=== PATIENT | male | born 2005 | race Caucasian/White ===

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

== ENCOUNTER 2023-12-18 08:00 | Outpatient (CLI) | payer BC | END 2023-12-18 23:59 | disposition home or self-care (01) | LOC: LAB.N 08:00 | PROVIDERS: ATTEND Nurse Practitioner | DX: R07.0 Pain in throat (principal) | CPT/HCPCS: 87070 ==

== ENCOUNTER 2023-12-29 08:48 | Outpatient (CLI) | payer BC ==
[2023-12-29] MEDS ORDERED: iohexoL-300 100 ML VIAL ONE ×2 (08:50→09:03)
[2023-12-29] MEDS: iohexoL-300 100 ML VIAL IVP ONE (15:34)
--- NOTE | 2023-12-29 21:59 | CT Report ---
PROCEDURE: Soft Tissue Neck W INDICATIONS: THROAT PAIN CONTRAST: Omni 300 100ml TECHNIQUE: After the administration of intravenous contrast, 3.0 mm axial sections acquired from the sella to th e aortic arch. Additional oblique axial 3.0 mm sections acquired through the pharynx. 3 mm thick co amado reformats were generated. For radiation dose reduction, the following was used: automated exp osure control, adjustment of mA and/or kV according to patient size. COMPARISON: None. FINDINGS: Image quality: Excellent. Lymph nodes: No enlarged lymph nodes seen throughout the neck. Vessels: Visualized vasculature appears patent. Neck spaces: The oropharynx, nasopharynx, and pharynx demonstrate no mucosal lesions. The vocal cor ds, false vocal cords, pyriform sinuses, epiglottis, vallecula, and tongue base all appear normal. E xtramucosal spaces appear unremarkable. Glands: The parotid and submandibular glands appear normal. The thyroid is normal in size and there are no incidental findings. Miscellaneous: Visualized brain and orbits appear normal. Lung apices appear clear. Superficial so ft tissues appear normal. Bones: No suspicious bony lesions. Visualized sinuses and mastoids appear unremarkable. IMPRESSION: No visualized cause of pain. If concern persists, direct visualization by 18 T is recommended. CLINICAL RECOMMENDATION STATEMENTS: In patients <35 years with an ITN detected on CT, MRI, or extrathyroidal ultrasound, the Committee re commends further evaluation with dedicated thyroid ultrasound if the nodule is "e1 cm and has no susp icious imaging features, and if the patient has normal life expectancy. In patients "e35 years with an ITN detected on CT, MRI, or extrathyroidal ultrasound, the Committee r ecommends further evaluation with dedicated thyroid ultrasound if the nodule is "e1.5 cm and has no s uspicious imaging features, and if the patient has normal life expectancy. (ACR, 2014) Reviewed by: Katie Pacheco MD on 12/29/2023 9:58 PM PDT Approved by: Katie Pacheco MD on 12/29/2023 9:58 PM PDT Station ID: [id number]
== END 2023-12-29 08:49 | disposition home or self-care (01) ==
LOC: DI 08:48
PROVIDERS: ATTEND Nurse Practitioner
DX: R07.0 Pain in throat (principal)
CPT/HCPCS: 70491; Q9967